=== PATIENT | female | born 1995 | race Caucasian/White ===

== ENCOUNTER → 2019-02-21 | Outpatient (CLI) | payer OTHER ==
--- NOTE | 2019-02-21 14:23 | REP ---
ULTRASOUND RIGHT BREAST: Real-time sonographic evaluation of the right breast performed for a palpable abnormality in the region between the 9 and 12 o'clock. There is dense fibroglandular tissue in this region. At 12 o'clock there is a 5 mm cyst. No other cystic or solid nodule is seen. IMPRESSION: ACR 2 benign. Dense fibroglandular tissue is seen in the right breast between 9 and 12 o'clock in the region of the reported palpable lump. At 12 o'clock there is a 5 mm cyst. No other cystic or solid mass is seen. Clinical correlation and followup is recommended. Electronically Signed by Jagjit Castañeda MD 02/21/2019 04:26 P
== END ==
LOC: M RAD 12:08
PROVIDERS: ATTEND Family Medicine
DX: N64.4 Mastodynia (principal); N60.01 Solitary cyst of right breast

== ENCOUNTER → 2019-04-04 | Outpatient (CLI) | payer OTHER ==
[2019-04-04 18:59] LABS: FREE T4 0.89 NG/DL (0.76-1.46); THYROID STIMULATING HORMONE 0.952 uIU/ML (0.358-3.740)
[2019-04-04 19:01] LABS: PROGESTERONE 0.21 NG/ML
[2019-04-04 19:02] LABS: FOLLICLE STIMULATING HORMONE 6.5 mIU/mL; LUTEINIZING HORMONE 9.7 mIU/mL; PROLACTIN 3.9 NG/ML
== END ==
LOC: M SMT 13:17
PROVIDERS: ATTEND Specialist
DX: N93.8 Other specified abnormal uterine and vaginal bleeding (principal)

== ENCOUNTER → 2019-07-13 | Outpatient (REF) | payer OTHER | LOC: M LAB REF 13:23 | PROVIDERS: ATTEND Nurse Practitioner Family | DX: J02.9 Acute pharyngitis, unspecified (principal) ==

== ENCOUNTER → 2020-06-13 | Outpatient (CLI) | payer OTHER ==
[2020-06-13 10:57] LABS: HEMOGLOBIN 12.1 g/dl (12.0-15.5); MEAN CORPUSCULAR HEMOGLOBIN 27.9 pg (27.0-33.0); MEAN CORPUSCULAR HGB CONC 31.8 g/dl (32.0-36.5); MEAN CORPUSCULAR VOLUME 87.6 fl (80.0-96.0); PLATELET COUNT, AUTOMATED 420 10^3/uL (150-450); RED BLOOD COUNT 4.34 10^6/uL (4.00-5.40); WHITE BLOOD COUNT 6.4 10^3/uL (4.0-10.0)
[2020-06-13 11:14] LABS: HEMOGLOBIN A1c 5.7 %
[2020-06-13 11:36] LABS: ALBUMIN 3.6 GM/DL (3.2-5.2); ALT/SGPT 29 U/L (12-78); BILIRUBIN,TOTAL 0.2 MG/DL (0.2-1.0); BLOOD UREA NITROGEN 6 MG/DL (7-18); CALCIUM LEVEL 8.9 MG/DL (8.5-10.1); CARBON DIOXIDE LEVEL 28 MEQ/L (21-32); CHLORIDE LEVEL 105 MEQ/L (98-107); CHOLESTEROL LEVEL 167 MG/DL (<200); CHOLESTEROL RISK RATIO 3.976 (<5); CREATININE FOR GFR 0.55 MG/DL (0.55-1.30); GLOMERULAR FILTRATION RATE > 60.0 (>60); GLUCOSE, FASTING 91 MG/DL (70-100); HCG, SERUM QUANTITATIVE < 1.0 MIU/ML; HDL CHOLESTEROL 42 MG/DL (>40); LDL CHOLESTEROL 102 MG/DL (<100); NON-HDL-C 125 MG/DL; POTASSIUM SERUM 3.8 MEQ/L (3.5-5.1); SODIUM LEVEL 137 MEQ/L (136-145); TESTOSTERONE 40 NG/DL (14-76); TOTAL 25(OH) VITAMIN D 15.4 NG/ML (30.0-100.0); TOTAL PROTEIN 7.6 GM/DL (6.4-8.2); TRIGLYCERIDES LEVEL 116 MG/DL (<150)
[2020-06-13 11:37] LABS: PROGESTERONE 0.36 NG/ML; PROLACTIN 7.5 NG/ML
[2020-06-13 11:38] LABS: ESTRADIOL 44.6 PG/ML; LUTEINIZING HORMONE 9.1 mIU/mL
[2020-06-13 11:39] LABS: FOLLICLE STIMULATING HORMONE 5.7 mIU/mL
[2020-06-13 11:50] LABS: HEPATITIS B SURFACE ANTIGEN NEGATIVE (NEGATIVE)
[2020-06-13 12:15] LABS: HEPATITIS C VIRUS ABY INDEX 0.1 INDEX (<0.8)
[2020-06-13 12:18] LABS: HIV 1&2 SCREEN CENTAUR NEGATIVE (NEGATIVE)
[2020-06-26 07:52] LABS: ANTI MULLERIAN HORMONE SEE SEPARATE REPORT; DEHYDROEPIANDROSTERONE SULFATE See Separate Report MCG/DL; HERPES ZOSTER, VARICELLA IgG SEE SEPARATE REPORT
[2020-06-26 07:53] LABS: 17 HYDROXY PROGESTERONE SEE SEPARATE REPORT
== END ==
LOC: M LAB 09:30
PROVIDERS: ATTEND Obstetrics & Gynecology Reproductive Endocrinology
DX: E28.9 Ovarian dysfunction, unspecified (principal)

== ENCOUNTER → 2020-06-14 | Outpatient (CLI) | payer OTHER | LOC: M RAD 07:31 | PROVIDERS: ATTEND Obstetrics & Gynecology Reproductive Endocrinology | DX: Z53.8 Procedure and treatment not carried out for other reasons (principal) ==

== ENCOUNTER → 2021-03-07 | Outpatient (CLI) | payer OTHER ==
[~2021-03-07] MED LIST: ISOVUE-370 76% 100ML VIAL As Ordered ONE
--- NOTE | 2021-03-07 17:21 | REP ---
INDICATION: INFERTILITY. COMPARISON: None. TECHNIQUE: The endometrium is cannulated by the attending egg and spice mixer. Fluoroscopic guidance is provided during contrast injection and intermittent spot filming is acquired. 0.2 minutes of fluoroscopy time is utilized. FINDINGS: There is opacification of a normal shaped endometrial cavity. No filling defect or synechia is appreciated. The isthmic and ampullary segments of fallopian tubes opacify promptly and symmetrically. Bilateral tubal patency is documented. The endocervical balloon with spontaneously dislodged as the final film documenting tubal patency was being exposed. IMPRESSION: Normal hysterosalpingogram documenting bilateral tubal patency. <Electronically signed by Celestino Rose > 03/07/21 0279
== END ==
LOC: M RADPRO 12:35
PROVIDERS: ATTEND Obstetrics & Gynecology
DX: N97.9 Female infertility, unspecified (principal)
CPT/HCPCS: 58340; 74740; Q9967

== ENCOUNTER 2021-04-25 22:54 | Emergency (ER) | payer OTHER ==
[~2021-04-25] VITALS: Ht 157.5 cm; Wt 74.2 kg
[2021-04-25 22:55] VITALS: BP 122/74
[2021-04-25] MEDS ORDERED: MEDR10TA (23:09)
[2021-04-25] MEDS ORDERED: LETR2.5T2 (23:09)
[2021-04-25] MEDS ORDERED: METF500T13 (23:09)
[2021-04-25] MEDS ORDERED: PREN1TAB14 (23:09)
== END 2021-04-25 23:10 | disposition left against medical advice (07) ==
LOC: M ED 22:54
DX: Z53.21 Procedure and treatment not carried out due to patient leaving prior to being seen by health care provider (principal)